=== PATIENT | male | born 1995 | race Caucasian/White ===

== ENCOUNTER 2018-06-04 15:17 | Emergency (ER) | payer OTHER ==
[~2018-06-04] VITALS: Ht 185.4 cm; Wt 63.6 kg
[2018-06-04] MEDS ORDERED: POVIDONE-IODINE 10% 15 ML SOLUTION UD TP ONE (16:30)
[2018-06-04 16:42] VITALS: BP 120/78
[2018-06-04] MEDS ORDERED: IBUPROFEN 800 MG TABLET PO ONE (16:45)
== END 2018-06-04 16:56 | disposition left against medical advice (07) ==
LOC: EMS 15:19
DX: M25.561 Pain in right knee (principal); M79.89 Other specified soft tissue disorders
CPT/HCPCS: 99281